=== PATIENT | female | born 1990 | race Caucasian/White ===

== ENCOUNTER 2016-06-24 14:06 | Inpatient (IN) | payer SELFPAY ==
[~2016-06-24] VITALS: Ht 162.6 cm; Wt 87.2 kg
[2016-06-24] MEDS ORDERED: PRENAT PO (14:18)
[2016-06-24 14:19] VITALS: BP 134/76; PULSE 79; RESP 20; Ht 162.6 cm; Wt 87.2 kg
--- NOTE | 2016-06-24 14:32 | TRIAGE ---
OB Triage Datetime Report Generated by CPN: 06/24/2016 14:32 Datetime: 06/24/2016 14:26 Vaginal Exam Dilatation (cms): 6.0 Effacement (%): 100 Station: -1 Exam By: [facility] Membrane Status: Ruptured Membranes Rupture Method: Spontaneous Amniotic Fluid Color: Clear Amniotic Fluid Amount: Moderate Amniotic Fluid Odor: None Vaginal Bleeding: None Pool: Positive Nitrazine: Positive Cervix, Consistency: Soft Cervix, Position: Anterior Presentation 'A': Cephalic Datetime: 06/24/2016 14:17 Assessment Type: Triage EGA: 36.2 Maternal Assessment Level of Consciousness: Fully Conscious DTR's/Clonus: DTRs 2+; No Clonus Headache: Denies Blurred Vision: No Respiratory Effort: Unlabored; Regular Rhythm; Equal Expansion Breath Sounds, Left: Clear and Equal Breath Sounds, Right: Clear and Equal Nausea/Vomiting: Denies RUQ Epigastric Pain: Denies Lower Extremities Edema: None Degree: None Upper Extremities Edema: None Degree: None Facial Edema: None Fall Risk Assessment History of Falling: (0) No Secondary Diagnosis: (0) No Ambulatory Aid: (0) Bedrest/Nurse Assist IV Therapy: (0) No Gait: (0) Normal/Bedrest/Immobile Mental Status: (0) Oriented to Own Ability Fall Score: 0 Fall Risk Score Definition: No Risk: No action required Datetime: 06/24/2016 14:16 Time of Arrival: 06/24/2016 14:03 Arrived By: Wheelchair Arrived From: Home Chief Complaint: C/O UC'S AND POSSIBLE SROM Movement: Present Contractions: Regular Time Contractions Began: 06/24/2016 12:00 Rupture of Membranes: Unsure Vaginal Bleeding: None Vaginal Discharge: Denies Recent Sexual Intercouse: Denies Abdominal Trauma: Not Applicable Patient Complaints: Contractions; Cramping; Back Pain Time Provider Notified: 06/24/2016 14:30 Provider Notified: GUERLINE Initial Plan: KATHERINE
[2016-06-24] MEDS ORDERED: LACTATED RINGER'S 1,000 ML IV SCH (14:56)
[2016-06-24] MEDS ORDERED: AMPICILLIN 2 GM/NS (PMX) 100 ML ONE (14:57)
[2016-06-24] MEDS ORDERED: CARBOPROST 250 MCG INJ IM PRN ×2 (15:00→18:30)
[2016-06-24] MEDS ORDERED: AMPICILLIN 2 GM/NS (PMX) 100 ML IV ONE (15:00)
[2016-06-24] MEDS ORDERED: METHYLERGONOVINE 0.2 MG INJ IM PRN ×2 (15:00→18:30)
[2016-06-24] MEDS ORDERED: BUTORPHANOL 2 MG INJ IV PRN (15:00)
[2016-06-24] MEDS ORDERED: LIDOCAINE 1% (MPF) 30 ML INJ INJ PRN (15:00)
[2016-06-24] MEDS ORDERED: MISOPROSTOL 200 MCG TAB PR PRN ×2 (15:00→18:30)
[2016-06-24] MEDS ORDERED: LACTATED RINGER'S 1,000 ML IV PRN (15:00)
[2016-06-24] MEDS ORDERED: IBUPROFEN 600 MG TAB PO PRN (15:00)
[2016-06-24] MEDS ORDERED: OXYTOCIN 30 UNITS/LR 500 ML IV PRN ×2 (15:00→18:30)
[2016-06-24] MEDS ORDERED: OXYTOCIN 30 UNITS/LR 500 ML IV SCH ×2 (15:00)
[2016-06-24 15:31] LABS: BASOPHILS % 0.3 % (0.0-2.0); EOSINOPHILS # 0.1 10^3/ul (0.0-0.5); EOSINOPHILS % 0.7 % (0.0-7.0); HEMATOCRIT 41.6 % (37.0-47.0); HEMOGLOBIN 13.2 g/dl (12.0-16.0); LYMPHOCYTES # 2.3 10^3/ul (0.8-2.9); LYMPHOCYTES % 18.9 % (15.0-51.0); MEAN CORPUSCULAR HEMOGLOBIN 26.3 pg (29.0-33.0); MEAN CORPUSCULAR HGB CONC 31.7 g/dl (32.0-37.0); MEAN CORPUSCULAR VOLUME 82.9 fl (82.0-101.0); MEAN PLATELET VOLUME 11.1 fl (7.4-10.4); MONOCYTE # 0.7 10^3/ul (0.3-0.9); MONOCYTES % 5.6 % (0.0-11.0); NEUTROPHIL # 8.9 10^3/ul (1.6-7.5); NEUTROPHILS % 74.2 % (39.0-77.0); PLATELET COUNT 312 10^3/UL (140-415); RED BLOOD COUNT 5.02 10^6/ul (4.20-5.40); RED CELL DISTRIBUTION WIDTH 14.5 % (11.5-14.5)
[2016-06-24 15:39] LABS: INR 0.87; PARTIAL THROMBOPLASTIN TIME 27.1 Sec (25.0-35.0); PROTIME 11.8 Sec (12.2-14.2); PT RATIO 0.9
--- NOTE | 2016-06-24 16:47 | LDN ---
Date/Time of Note Date/Time of Note DATE: 06/24/16 TIME: 16:43 Delivery Summary Placenta Delivered: Spontaneously Meconium: Light Perineum intact?: Yes Anesthesia type: None Estimated blood loss: 100 Sponge & Needle done & correct: Yes All needle counts correct: Yes Any foreign bodies felt in the: No Problems: Infant Delivery Information Sex Sex: female Apgars 1 Minute: 9 5 Minute: 9 Suctioning Nose & mouth suctioned at karen: Yes Delee suction performed: No Umbilical Cord Umbilical cord with: 3 Vessels Cord presentations: no nuchal cord Cord Blood was obtained: Yes Mother & Baby Disposition Disposition Mom & Baby to Maternity; Good: Yes Mom transferred to: Med/Surg Baby to NICU: No MAIA CORTES MD Jun 24, 2016 16:47
[2016-06-24 17:13] LABS: BARBITURATES NEGATIVE (NEGATIVE); BENZODIAZEPINES NEGATIVE (NEGATIVE); CANNABINOIDS NEGATIVE (NEGATIVE); COCAINE NEGATIVE (NEGATIVE); OPIATES NEGATIVE (NEGATIVE)
[2016-06-24] MEDS ORDERED: DIBUCAINE 1% 30 GM OINT PR PRN (18:30)
[2016-06-24] MEDS ORDERED: ACETAMINOPHEN 500 MG TAB PO PRN (18:30)
[2016-06-24] MEDS ORDERED: OXYCODONE/ASPIRIN (4.88/325) TAB PO PRN ×2 (18:30)
[2016-06-24] MEDS ORDERED: WITCH HAZEL/GLYCERIN PAD PR PRN (18:30)
[2016-06-24] MEDS ORDERED: BENZOCAINE 20% 56 ML SPRAY TOP PRN (18:30)
[2016-06-24] MEDS ORDERED: SENNA/DOCUSATE NA (8.6MG/50MG) TAB PO PRN (18:30)
[2016-06-24] MEDS ORDERED: LANOLIN 7 GM TUBE TOP PRN (18:30)
[2016-06-24 18:34] VITALS: BP 122/62; PULSE 80; RESP 18
[2016-06-24] MEDS: OXYTOCIN 30 UNITS/LR 500 ML IV SCH ×2 (18:46→22:29)
[2016-06-24] MEDS ORDERED: AMPICILLIN 1 GM/NS (PMX) 50 ML IV SCH (19:00)
[2016-06-24 19:35] VITALS: BP 130/83; PULSE 63; RESP 18
[2016-06-25 00:15] VITALS: BP 116/63; PULSE 73; RESP 17
[2016-06-25] MEDS: IBUPROFEN 600 MG TAB PO PRN ×4 (00:47→23:53)
[2016-06-25] MEDS: OXYTOCIN 30 UNITS/LR 500 ML IV SCH (02:29)
[2016-06-25 03:55] VITALS: BP 118/67; PULSE 65; RESP 17
[2016-06-25 06:36] LABS: ADD SCAN DIFF NO
[2016-06-25 06:38] LABS: BASOPHILS % 0.4 % (0.0-2.0); EOSINOPHILS # 0.1 10^3/ul (0.0-0.5); EOSINOPHILS % 1.3 % (0.0-7.0); HEMATOCRIT 37.6 % (37.0-47.0); HEMOGLOBIN 12.2 g/dl (12.0-16.0); LYMPHOCYTES % 29.5 % (15.0-51.0); MEAN CORPUSCULAR HEMOGLOBIN 27.1 pg (29.0-33.0); MEAN CORPUSCULAR HGB CONC 32.4 g/dl (32.0-37.0); MEAN CORPUSCULAR VOLUME 83.6 fl (82.0-101.0); MEAN PLATELET VOLUME 10.3 fl (7.4-10.4); MONOCYTE # 0.7 10^3/ul (0.3-0.9); MONOCYTES % 6.7 % (0.0-11.0); NEUTROPHIL # 6.3 10^3/ul (1.6-7.5); NEUTROPHILS % 61.7 % (39.0-77.0); PLATELET COUNT 269 10^3/UL (140-415); RED CELL DISTRIBUTION WIDTH 14.3 % (11.5-14.5); WHITE BLOOD COUNT 10.2 10^3/ul (4.8-10.8)
[2016-06-25 07:40] VITALS: BP 115/77; PULSE 65; RESP 16
--- NOTE | 2016-06-25 07:43 | HP ---
Date/Time of Note Date/Time of Note DATE: 06/25/16 TIME: 07:42 OB - History Hx of Present Free Text/Dictation term preg, nsd Care: Good Care Ultrasounds: Normal mid trimester US Medical Complications: None Past Family/Social History * Past Medical, Surgical, Family and Obstetric Histories reviewed from chart. OB Admission Exam Vital Signs Vital Signs Vital Signs Date Time Temp Pulse Resp B/P Pulse Ox O2 Delivery O2 Flow Rate FiO2 06/25/16 03:55 98.4 65 17 118/67 Room Air 06/24/16 14:19 96 Physical Exam HEENT: WNL Heart: Rhythm Normal Lungs: Clear, Equal Abdomen: WNL Extremities: Normal Reflexes: Normal Last 72 hours Lab Results CBC & BMP 06/24/16 14:54 06/25/16 06:20 OB Assessment/Plan Reason for admission: active labor Plan: Expectant Management SAMI CUNHA MD Jun 25, 2016 07:43
--- NOTE | 2016-06-25 07:44 | DS ---
Date/Time of Note Date/Time of Note DATE: 06/25/16 TIME: 07:43 Discharge Summary Admission/Discharge Info Admit Date/Time Jun 24, 2016 at 14:44 Discharge Date/Time Final Diagnosis term preg, vaginal delivery Patient Condition: Stable Hospital Course unremarkable Home Meds Reported Medications Multivit/Min/Fol Ac/Iron/Pren* ( S*) 1 Tab Tab, 1 TAB PO DAILY, TAB 06/24/16 Pending Labs Laboratory Tests Test 06/24/16 14:54 06/24/16 15:50 06/25/16 06:20 Activated Partial Thromboplast Time 27.1Sec (25.0-35.0) Basophils # 0.010^3/ul (0.0-0.1) 0.010^3/ul (0.0-0.1) Basophils % 0.3% (0.0-2.0) 0.4% (0.0-2.0) Eosinophils # 0.110^3/ul (0.0-0.5) 0.110^3/ul (0.0-0.5) Eosinophils % 0.7% (0.0-7.0) 1.3% (0.0-7.0) Hematocrit 41.6% (37.0-47.0) 37.6% (37.0-47.0) Hemoglobin 13.2g/dl (12.0-16.0) 12.2g/dl (12.0-16.0) Hepatitis B Surface Antigen NEGATIVE (NEGATIVE) INR International Normalized Ratio 0.87 Lymphocytes # 2.310^3/ul (0.8-2.9) 3.010^3/ul (0.8-2.9) Lymphocytes % 18.9% (15.0-51.0) 29.5% (15.0-51.0) Mean Corpuscular Hemoglobin 26.3pg (29.0-33.0) 27.1pg (29.0-33.0) Mean Corpuscular Hemoglobin Concent 31.7g/dl (32.0-37.0) 32.4g/dl (32.0-37.0) Mean Corpuscular Volume 82.9fl (82.0-101.0) 83.6fl (82.0-101.0) Mean Platelet Volume 11.1fl (7.4-10.4) 10.3fl (7.4-10.4) Monocytes # 0.710^3/ul (0.3-0.9) 0.710^3/ul (0.3-0.9) Monocytes % 5.6% (0.0-11.0) 6.7% (0.0-11.0) Neutrophils # 8.910^3/ul (1.6-7.5) 6.310^3/ul (1.6-7.5) Neutrophils % 74.2% (39.0-77.0) 61.7% (39.0-77.0) Nucleated Red Blood Cells # 0.010^3/ul (0.0-0.0) 0.010^3/ul (0.0-0.0) Nucleated Red Blood Cells % 0.0/100WBC (0.0-0.0) 0.0/100WBC (0.0-0.0) Platelet Count 57055^3/UL (140-415) 33748^3/UL (140-415) Prothrombin Time 11.8Sec (12.2-14.2) Prothrombin Time Ratio 0.9 Red Blood Count 5.0210^6/ul (4.20-5.40) 4.5010^6/ul (4.20-5.40) Red Cell Distribution Width 14.5% (11.5-14.5) 14.3% (11.5-14.5) White Blood Count 12.010^3/ul (4.8-10.8) 10.210^3/ul (4.8-10.8) Urine Amphetamines Screen NEGATIVE (NEGATIVE) Urine Barbiturates NEGATIVE (NEGATIVE) Urine Benzodiazepines Screen NEGATIVE (NEGATIVE) Urine Cannabinoids NEGATIVE (NEGATIVE) Urine Cocaine Screen NEGATIVE (NEGATIVE) Urine Opiates Screen NEGATIVE (NEGATIVE) SAMI CUNHA MD Jun 25, 2016 07:44
--- NOTE | 2016-06-25 07:44 | QN ---
Documentation Comment s/p vag delievery no problem d/c home next am SAMI CUNHA MD Jun 25, 2016 07:44
[2016-06-25] MEDS: MULTIVIT/MIN/FOLATE/IRON/PREN TAB PO SCH (09:47)
[2016-06-25 15:53] VITALS: BP 120/71; PULSE 77; RESP 18
[2016-06-25 19:30] VITALS: BP 115/68; PULSE 74; RESP 19
[2016-06-26] MEDS: IBUPROFEN 600 MG TAB PO PRN (05:36)
[2016-06-26] MEDS ORDERED: DIPHTH/TET/ACEL PERTUSS (ADULT) 0.5 ML VIAL IM* ONE (09:00)
[2016-06-26] MEDS: MULTIVIT/MIN/FOLATE/IRON/PREN TAB PO SCH (09:32)
--- NOTE | 2016-06-26 12:28 | QN ---
Documentation Comment Pt is S/P a on 06/24 and is ready for d/c. I spoke to pt And reviewed her d/ c instructions and answered all questions she had and cleared her for d/c. FELIX JOHNSON MD Jun 26, 2016 12:28
== END 2016-06-26 12:20 | disposition home or self-care (01) | DRG 775 ==
LOC: OBT 14:06 → L-D 14:08 → OBT 14:42 → L-D 14:44 → PP1 18:15
PROVIDERS: ADMIT Obstetrics & Gynecology; ATTEND Obstetrics & Gynecology
PROC: 10E0XZZ Delivery of Products of Conception, External Approach (ICD-10-PCS; principal; 2016-06-24)
DX: O60.14X0 Preterm labor third trimester with preterm delivery third trimester, not applicable or unspecified (principal); Z37.0 Single live birth; Z3A.36 36 weeks gestation of pregnancy
CPT/HCPCS: 80307; 85025; 85610; 85730; 86592; 86900; 86901; 87340; 90715; G0463; J0290; J2590; J7120